=== PATIENT | female | born 1950 | race Caucasian/White ===

== ENCOUNTER → 2023-06-21 | Outpatient (CLI) | payer MEDICARE | LOC: LAB 12:49 | DX: E78.5 Hyperlipidemia, unspecified (principal); E03.9 Hypothyroidism, unspecified; R73.9 Hyperglycemia, unspecified; N18.30 Chronic kidney disease, stage 3 unspecified ==

== ENCOUNTER 2024-11-12 06:03 | Day surgery (SDC) | payer OTHER ==
[2024-11-12] VITALS (9 sets, daily range): BP systolic 107–155; BP diastolic 54–77
[~2024-11-12] VITALS: Ht 149.9 cm; Wt 91.6 kg
[~2024-11-12 06:03] MED LIST: Aspir 8181 MG PO; Crestor40 MG PO; FERSU300 PO; HYDCHL12.5 PO; KRILL OIL 1,001 EAC1 PO; LEVSOD100 PO; LISI5 PO; LOVA20 PO
[2024-11-12] MEDS ORDERED: NITR.4SL SL (06:33)
[2024-11-12] MEDS ORDERED: Verapamil HCL 2.5 MG/ML 2ML Injection ONE (06:41)
[2024-11-12] MEDS ORDERED: NS 250 ML IV ONE (06:42)
[2024-11-12] MEDS ORDERED: Heparin Sodium 1000 Units/ML 10ML MDV ONE (06:42)
[2024-11-12] MEDS ORDERED: Nitroglycerin 2 MG/20 ML BTL ONE (06:42)
[2024-11-12] MEDS ORDERED: NS 1,000 ML IV ONE ×2 (06:42→07:07)
[2024-11-12] MEDS ORDERED: FentaNYL Citrate 50 MCG/ML 2 ML Injection ONE (07:07)
[2024-11-12] MEDS ORDERED: Midazolam HCl 1MG / ML 2ML Vial ONE (07:07)
--- NOTE | 2024-11-12 08:08 | NUR ---
PT BACK TO RECOVERY FROM LAB. PT A&O. PT SITTING UP IN RECLINER. PT GIVEN ORANGE JUICE BY FEBRUARY. RADIAL SITE SOFT AND NON-TENDER PER PT. NO BLEEDING NOTED.
--- NOTE | 2024-11-12 08:52 | NUR ---
r radial site soft and non-tender per pt. no bleeding noted. pt given food by john leal.
--- NOTE | 2024-11-12 09:11 | NUR ---
pt given coffee per request.
--- NOTE | 2024-11-12 09:23 | NUR ---
2cc removed from tr band. site soft and non-tender per pt. no bleeding noted.
--- NOTE | 2024-11-12 09:43 | NUR ---
tr band fully deflated. site soft and non-tender per pt. no bleeding noted.
--- NOTE | 2024-11-12 10:11 | NUR ---
RADIAL SITE SOFT AND NON-TENDER PER PT. NO BLEEDING NOTED.
--- NOTE | 2024-11-12 10:58 | NUR ---
cuate at bedside evaluating r wrist for hematoma.
--- NOTE | 2024-11-12 11:29 | NUR ---
pt given dc instructions and verbalized understanding. iv out. pt chnaged. cloth dot, arm board, and sling applied. radial site soft and non-tender per pt. no bleeding noted. dr thompson assessed site. ok to d/c home per dr thompson. pt taken to truck via [place] to drive pt home.
== END 2024-11-12 11:35 | disposition home or self-care (01) ==
LOC: MHTC 06:03
DX: I25.10 Atherosclerotic heart disease of native coronary artery without angina pectoris (principal); I10 Essential (primary) hypertension; E78.5 Hyperlipidemia, unspecified; E03.9 Hypothyroidism, unspecified; E66.9 Obesity, unspecified; Z88.1 Allergy status to other antibiotic agents; Z79.82 Long term (current) use of aspirin; Z79.899 Other long term (current) drug therapy; Z79.890 Hormone replacement therapy
CPT/HCPCS: 76937; 93454; 99152; 99153; C1769; C1887; C1894; J1644; J2250; J3010; J7030; J7050; Q9967

== ENCOUNTER 2024-11-12 14:38 | Observation (INO) | payer OTHER ==
[~2024-11-12] VITALS: Ht 149.9 cm; Wt 90.7 kg
[~2024-11-12 14:38] MED LIST changes: +NITR.4SL SL
[2024-11-12 16:00] VITALS: BP 144/78
[2024-11-12] MEDS ORDERED: FLU VACC TS2024-25(6MOS UP)/PF 45 MCG/0.5 ML SYRINGE IM ONE (17:50)
[2024-11-12] MEDS ORDERED: Ondansetron 4 MG TAB PO PRN (17:50)
[2024-11-13] MEDS ORDERED: Enoxaparin 40 MG/0.4 ML SYR SC SCH (19:00)
== END 2024-11-12 19:42 | disposition home or self-care (01) ==
LOC: ER 14:38 → ERHOLD 14:39
PROVIDERS: ADMIT Internal Medicine
DX: M96.841 Postprocedural hematoma of a musculoskeletal structure following other procedure (principal); M79.89 Other specified soft tissue disorders; I25.10 Atherosclerotic heart disease of native coronary artery without angina pectoris; I12.9 Hypertensive chronic kidney disease with stage 1 through stage 4 chronic kidney disease, or unspecified chronic kidney disease; N18.30 Chronic kidney disease, stage 3 unspecified; E78.5 Hyperlipidemia, unspecified; E03.9 Hypothyroidism, unspecified; R73.03 Prediabetes; E66.9 Obesity, unspecified; Z68.41 Body mass index [BMI] 40.0-44.9, adult; Z88.2 Allergy status to sulfonamides; Z79.82 Long term (current) use of aspirin; Z79.890 Hormone replacement therapy; Z79.899 Other long term (current) drug therapy
CPT/HCPCS: 93931; 99284-25; G0378

== ENCOUNTER 2025-07-05 09:57 | Day surgery (SDC) | payer OTHER | END 2025-07-05 23:00 | disposition home or self-care (01) | LOC: MOI US 09:57 | DX: C50.512 Malignant neoplasm of lower-outer quadrant of left female breast (principal) | CPT/HCPCS: 19285; 77065; A4648 ==

== ENCOUNTER 2025-07-16 07:35 | Day surgery (SDC) | payer OTHER ==
[~2025-07-16] VITALS: Ht 149.9 cm; Wt 90.3 kg
[2025-07-16] VITALS (9 sets, daily range): BP systolic 129–156; BP diastolic 60–85
[~2025-07-16 07:35] MED LIST changes: +ARTHRITIS PAIN150 GM TOP; +CeFAZolin Sodium 2,000 MG in NS 100 ML IV SCH; -HYDCHL12.5 PO; +HYDCHL25 PO; -LISI5 PO; +Prinivil10 MG PO; +ROSUVASTATIN CA20 MG PO
[2025-07-16] MEDS ORDERED: Rocuronium Bromide 10 MG/ML 5ML Injection IV ONE (07:47)
[2025-07-16] MEDS ORDERED: Sugammadex Sodium 200 MG/2ML SDV (100 MG/ML) ONE ×2 (08:03→09:40)
--- NOTE | 2025-07-16 08:19 | NUR ---
Ambulatory in Day Surgery History, Chart, Medications and Allergies reviewed before start of procedure. Pre-Op teaching done. Pt verbalizes understanding. Patient States Post-Procedure ride home has been arranged.
[2025-07-16] MEDS ORDERED: Bupivacaine 0.5% HCl 5 MG/ML 30MLVIAL ONE (08:35)
[2025-07-16] MEDS ORDERED: FentaNYL Citrate 50 MCG/ML 2 ML Injection ONE (08:55)
[2025-07-16] MEDS ORDERED: Ondansetron HCl 2 MG / ML 2ML Vial IV PRN (09:10)
[2025-07-16] MEDS ORDERED: Albuterol 2.5 MG/3 ML VIAL INH PRN (09:10)
[2025-07-16] MEDS ORDERED: HYDROmorphone HCl/Pf 1MG SYR IV PRN ×2 (09:15)
[2025-07-16] MEDS ORDERED: FentaNYL Citrate 50 MCG/ML 2 ML Injection IV PRN ×2 (09:15)
[2025-07-16] MEDS ORDERED: Dexamethasone Sod Phos 10 MG/ML 1ML VIAL ONE (09:33)
[2025-07-16] MEDS ORDERED: Ondansetron HCl 2 MG / ML 2ML Vial ONE (09:33)
[2025-07-16] MEDS ORDERED: Ketorolac Tromethamine 30mg Vial ONE (09:46)
[2025-07-16] MEDS ORDERED: Albuterol HFA200 ACT/6.7 GM INH ONE (09:59)
[2025-07-16] MEDS ORDERED: HYDROcodone 5-APAP 325 TAB PO PRN (10:10)
--- NOTE | 2025-07-16 11:42 | NUR ---
TO STEP POST LEFT LUMPECTOMY. A/O X 3. REPORTS MILD PAIN, 2/10. DENIES NAUSEA/SOB. GAUZE DRESSING CDI. VERBALIZED UNDERSTANDING OF DC INSTRUCTIONS. SPOUSE AT BEDSIDE. DECLINES PO PAIN MEDS AT THIS TIME. DC'D IV INTACT. DC'D VIA WC TO PRIVATE CAR WITH PEANUT BLANCHER.
== END 2025-07-16 11:30 | disposition home or self-care (01) ==
LOC: ORSCMMR 07:35 → ORD 09:00 → ORSCMMR 09:00
PROVIDERS: Surgery
PROC: 0HBU0ZZ Excision of Left Breast, Open Approach (ICD-10-PCS; principal; 2025-07-16 09:00)
DX: C50.512 Malignant neoplasm of lower-outer quadrant of left female breast (principal); I12.9 Hypertensive chronic kidney disease with stage 1 through stage 4 chronic kidney disease, or unspecified chronic kidney disease; Z17.0 Estrogen receptor positive status [ER+]; Z17.21 Progesterone receptor positive status; N18.30 Chronic kidney disease, stage 3 unspecified; E78.5 Hyperlipidemia, unspecified; E03.9 Hypothyroidism, unspecified; Z79.899 Other long term (current) drug therapy
CPT/HCPCS: 76098; 88307; A9270; J0690; J1100; J1885; J2405; J2704; J3010; J7120